=== PATIENT | male | born 1955 | race Caucasian/White ===

== ENCOUNTER → 2023-04-02 13:23 | Outpatient (CLI) | payer MEDICARE, SELFPAY ==
[2023-04-02 14:45] LABS: Blood Urea Nitrogen 21 mg/dL (9-20); Calcium 9.2 mg/dL (8.4-10.2); Carbon Dioxide 26 mmol/L (22-32); Chloride 101 mmol/L (98-107); Estimated Glomerular Filt Rate > 60 mL/min (>60); Glucose 115 mg/dL (80-110); HEMOLYSIS < 15 (0-50); Potassium 4.2 mmol/L (3.4-5.1); Sodium 135 mmol/L (137-145)
== END ==
PROVIDERS: Referring Provider Surgery; Visit Provider Surgery
DX: N50.89 Other specified disorders of the male genital organs (principal)
CPT/HCPCS: 36415; 80048; 99214

== ENCOUNTER → 2023-04-03 08:14 | Outpatient (CLI) | payer MEDICARE, SELFPAY ==
--- NOTE | 2023-04-03 08:15 | DI.CT.S_ITS ---
PROCEDURE: CT ABDOMEN PELVIS W CON INDICATIONS: Perineal mass TECHNIQUE: After the administration of IV contrast, axial sections were acquired from the lung bases to the pubic symphysis. Coronal and sagittal reformats were performed. For radiation dose reduction, the following was used: automated exposure control, adjustment of mA and/or kV according to patient size. COMPARISON: None. FINDINGS: Image quality: Excellent. Lung bases: No pleural effusion. Tiny fat containing right Bochdalek hernia. Heart: No significant findings. ABDOMEN: Liver: No focal lesion. Gallbladder: Within normal limits. Biliary ducts: Unremarkable. Pancreas: Within normal limits. Spleen: No splenomegaly. Adrenal Glands: No nodule. Kidneys and Ureters: No hydronephrosis. No solid renal mass. Stomach and Bowel: Stomach, small bowel loops, and colon are unremarkable. The appendix is within normal limits and contains air within its lumen. Peritoneum: No abnormal intraperitoneal fluid. No free air. Ventral Wall: No hernia. Abdominal Nodes: No retroperitoneal or mesenteric adenopathy by size criteria. Vessels: Aorta and inferior vena cava are normal in size. PELVIS: Pelvic Organs: Prostate is within normal limits. Bladder: Right bladder wall enhancing mass measuring 3 x 2.9 cm, ( trace peripheral calcification. The mass is near the ureteral orifice. There is also all mild thickening at the right posterior wall with calcification at the posterior midline bladder wall. This is concerning for a sessile component of the bladder lesion. Pelvic Nodes: No enlarged lymph nodes. Miscellaneous: No inguinal hernias are seen. No mass identified in the perineal region. Bones: No suspicious lesion. Multilevel DDD. IMPRESSION: 1. Right bladder wall mass measuring 3 cm. Suspect additional sessile component extending medially at the posterior bladder wall. 2. No hydronephrosis. 3. No adenopathy. 4. No mass identified in the perineal region. Preliminary findings called to office of Dr. Márquez in conveyed to [place] at time of dictation. Dictated by: Husam New M.D. on 04/03/2023 at 9:37 Approved by: Husam New M.D. on 04/03/2023 at 9:50
== END ==
PROVIDERS: Referring Provider Surgery; Visit Provider Surgery
DX: N50.89 Other specified disorders of the male genital organs (principal); N32.9 Bladder disorder, unspecified
CPT/HCPCS: 74177

== ENCOUNTER → 2024-03-21 09:46 | Outpatient (CLI) | payer MEDICARE, SELFPAY ==
[2024-03-21 11:15] LABS: Hematocrit 38.9 % (41-53); Mean Corpuscular HGB Conc 33.4 % (30-36); Mean Corpuscular Hemoglobin 29.6 PG (26-34); Mean Corpuscular Volume 88.7 fL (80-100); Platelet Count 296 X10^3/uL (150-400); Red Blood Cell Count 4.39 X10^6/uL (4.5-5.9); Red Cell Distribution Width 13.3 % (11.6-14.8); White Blood Cell Count 5.1 X10^3/uL (4.5-11.0)
[2024-03-21 11:52] LABS: Alanine Aminotransferase 24 IU/L (<50); Albumin 4.1 g/dL (3.5-5.0); Albumin Globulin Ratio 1.4 (1.0-2.8); Alkaline Phosphatase 52 U/L (38-126); Aspartate Aminotransferase 30 IU/L (17-59); BUN Creatinine Ratio 21.1 (6-22); Bilirubin Total 0.8 mg/dL (0.2-1.3); Blood Urea Nitrogen 19 mg/dL (9-20); Calcium 9.2 mg/dL (8.4-10.2); Carbon Dioxide 26 mmol/L (22-32); Chloride 100 mmol/L (98-107); Cholesterol 172 mg/dL (140-199); Estimated Glomerular Filt Rate > 60 mL/min (>60); Glucose 139 mg/dL (80-110); HDL Cholesterol 95 mg/dL (40-60); HEMOLYSIS < 15 (0-50); LDL Cholesterol Calculated 65 mg/dL (<100); Potassium 4.3 mmol/L (3.4-5.1); Sodium 134 mmol/L (137-145); Total Protein 7.1 g/dL (6.3-8.2); Triglycerides 58 mg/dL (35-150)
[2024-03-21 12:16] LABS: Prostate Specific Antigen 3.73 ng/mL (0.10-4.00)
[2024-03-21 12:18] LABS: TSH w/ Reflex to FT4 0.91 uIU/mL (0.47-4.68)
[2024-03-21 15:03] LABS: Hemoglobin A1C% w Est Avg Glu 6.5 % (4.0-6.0)
[2024-03-21 16:07] LABS: Creatinine Urine Random 73.79 mg/dL
[2024-03-21 16:19] LABS: Microalbumin Urine Random < 0.6 mg/dL (0-1.6)
== END ==
LOC: LAB 09:47
PROVIDERS: PCP Internal Medicine; Referring Provider Internal Medicine; Visit Provider Internal Medicine
DX: E78.2 Mixed hyperlipidemia (principal); E11.69 Type 2 diabetes mellitus with other specified complication; N40.1 Benign prostatic hyperplasia with lower urinary tract symptoms; E78.5 Hyperlipidemia, unspecified; N13.8 Other obstructive and reflux uropathy
CPT/HCPCS: 36415; 80053; 80061; 82043; 82570; 83036; 84153; 84443; 85027

== ENCOUNTER → 2025-02-01 10:50 | Outpatient (CLI) | payer MEDICARE, SELFPAY ==
[2025-02-01 11:36] LABS: Hematocrit 39.6 % (41-53); Hemoglobin 13.7 g/dL (13.5-17.5); Mean Corpuscular HGB Conc 34.6 % (30-36); Mean Corpuscular Hemoglobin 30.6 PG (26-34); Mean Corpuscular Volume 88.4 fL (80-100); Platelet Count 264 X10^3/uL (150-400)
[2025-02-01 12:05] LABS: Alanine Aminotransferase 25 IU/L (<50); Albumin 4.3 g/dL (3.5-5.0); Albumin Globulin Ratio 1.3 (1.0-2.8); Alkaline Phosphatase 52 U/L (38-126); Blood Urea Nitrogen 20 mg/dL (9-20); Calcium 9.3 mg/dL (8.4-10.2); Carbon Dioxide 26 mmol/L (22-32); Chloride 103 mmol/L (98-107); Cholesterol 179 mg/dL (140-199); Estimated Glomerular Filt Rate > 60 mL/min (>60); Globulin 3.2 g/dL (1.7-4.1); Glucose 128 mg/dL (70-99); HDL Cholesterol 91 mg/dL (40-60); HEMOLYSIS < 15 (0-50); Potassium 4.5 mmol/L (3.4-5.1); Sodium 135 mmol/L (137-145); Total Protein 7.5 g/dL (6.3-8.2); Triglycerides 58 mg/dL (35-150)
[2025-02-01 12:36] LABS: Prostate Specific Antigen 4.46 ng/mL (0.10-4.00)
== END ==
PROVIDERS: PCP Internal Medicine; Referring Provider Internal Medicine; Visit Provider Internal Medicine
DX: E11.69 Type 2 diabetes mellitus with other specified complication (principal); N40.1 Benign prostatic hyperplasia with lower urinary tract symptoms; N13.8 Other obstructive and reflux uropathy; E78.2 Mixed hyperlipidemia; E78.5 Hyperlipidemia, unspecified
CPT/HCPCS: 36415; 80053; 80061; 82043; 82570; 84153; 85027